=== PATIENT | male | born 1940 | race Caucasian/White ===

== ENCOUNTER 2017-11-21 08:00 | Outpatient (CLI) | payer MEDICARE, BC ==
[2017-11-21 12:50] LABS: BASOPHILS # (AUTO) 0.1 10^3/uL (0.0-0.1); BASOPHILS % (AUTO) 0.9 %; EOSINOPHILS # (AUTO) 0.4 10^3/uL (0.0-0.7); EOSINOPHILS % (AUTO) 6.1 %; HGB - HEMOGLOBIN 16.3 g/dL (14.0-18.0); LYMPHOCYTES # (AUTO) 1.2 10^3/uL (1.5-3.5); LYMPHOCYTES % (AUTO) 16.1 %; MEAN CORPUSCULAR HEMOGLOBIN 32.7 pg (27.0-31.0); MEAN CORPUSCULAR HGB CONC 34.4 g/dL (32.0-36.0); MEAN PLATELET VOLUME 8.4 fL (7.4-11.4); MONOCYTES # (AUTO) 0.7 10^3/uL (0.0-1.0); MONOCYTES % (AUTO) 9.7 %; NEUTROPHILS # (AUTO) 4.8 10^3/uL (1.5-6.6); NEUTROPHILS % (AUTO) 67.2 %; PLT - PLATELET COUNT 257 10^3/uL (130-450); RED BLOOD COUNT 4.98 10^6/uL (4.70-6.10); RED CELL DISTRIBUTION WIDTH 13.6 % (12.0-15.0); WHITE BLOOD COUNT 7.2 x10^3/uL (4.8-10.8)
[2017-11-21 13:09] LABS: ALBUMIN/GLOBULIN RATIO 1.1 (1.0-2.2); ALKALINE PHOSPHATASE 91 IU/L (42-121); ALT ALANINE AMINOTRANSFERASE 24 IU/L (10-60); AST ASPARTATE AMINOTRANSFERASE 24 IU/L (10-42); BILIRUBIN,TOTAL 0.6 mg/dL (0.2-1.0); BUN - BLOOD UREA NITROGEN 16 mg/dL (6-20); CALCIUM 9.2 mg/dL (8.5-10.3); CARBON DIOXIDE - CO2 26 mmol/L (21-32); CHLORIDE 107 mmol/L (101-111); CHOL/HDL RATIO 5.2 (<5.0); CHOLESTEROL 176 mg/dL; CREATININE 0.8 mg/dL (0.6-1.2); GFR - MDRD 94 (>89); GLUCOSE 107 mg/dL (70-100); HDL CHOLESTEROL 34 mg/dL; LDL CHOLESTEROL,CALCULATED 127 mg/dL; LDL/HDL RATIO 3.7 (<3.6); SODIUM 140 mmol/L (135-145); TOTAL PROTEIN 7.6 g/dL (6.7-8.2); VLDL CHOLESTEROL 15 mg/dL
== END 2017-11-21 08:01 | disposition home or self-care (01) ==
LOC: LAB.WCP 08:00
PROVIDERS: ATTEND Family Medicine
DX: I10 Essential (primary) hypertension (principal); Z12.5 Encounter for screening for malignant neoplasm of prostate; Z13.220 Encounter for screening for lipoid disorders
CPT/HCPCS: 36415; 80053; 80061; 85025; G0103; 83721; 84153

== ENCOUNTER 2018-05-19 08:00 | Outpatient (CLI) | payer MEDICARE, BC ==
[2018-05-19 12:42] LABS: ALBUMIN 3.7 g/dL (3.2-5.5); ALBUMIN/GLOBULIN RATIO 1.1 (1.0-2.2); BILIRUBIN,TOTAL 0.7 mg/dL (0.2-1.0); CALCIUM 8.9 mg/dL (8.5-10.3); TOTAL PROTEIN 7.1 g/dL (6.7-8.2)
[2018-05-19 13:07] LABS: HB2 TOTAL 16.6 g/dL; HEMOGLOBIN A1C 0.69 g/dL
== END 2018-05-19 23:59 ==
LOC: LAB.WCP 08:00
PROVIDERS: ATTEND Family Medicine
DX: R73.01 Impaired fasting glucose (principal); I10 Essential (primary) hypertension; E78.00 Pure hypercholesterolemia, unspecified; J45.909 Unspecified asthma, uncomplicated
CPT/HCPCS: 36415; 80053; 83036

== ENCOUNTER 2019-08-02 14:06 | Emergency (ER) | payer MEDICARE, BC ==
[2019-08-02] MEDS ORDERED: ALBUTEROL NEB 2.5 MG/3 ML INH STA (14:54)
--- NOTE | 2019-08-02 14:57 | ED Physician Documentation ---
History of Present Illness - Stated complaint Stated Complaint: SOA - Chief complaint Chief Complaint: Resp - History obtained from History obtained from: Patient - History of Present Illness Timing: Prior to arrival Pain level max: 0 Pain level now: 0 - Additonal information Additional information: 79 year old male here with cc of feeling short of breath and having wheeze on the right lung. reports that 2 days ago he was attempting to swallow a large gel coated capsule and it become stuck in his throat. He was trying to cough it out, but could not. a short time later the gel dissolved and he inhaled the contents of the capsule. Since then wheeze and some labored breathing since. Denies chest pain. Reports a long standing hx of asthma (advair and xopenex). never a smoker. Since the even he denies any productive cough, no hemoptysis. no fevers. Review of Systems Constitutional: reports: Fever, Reviewed and negative Nose: reports: Rhinorrhea / runny nose Throat: reports: Swallowed foreign body Cardiac: reports: Reviewed and negative Respiratory: reports: Dyspnea, Cough, Wheezing GI: reports: Reviewed and negative Skin: reports: Reviewed and negative Musculoskeletal: reports: Reviewed and negative Neurologic: reports: Reviewed and negative PD PAST MEDICAL HISTORY - Past Medical History Cardiovascular: None, Hypertension Respiratory: Asthma Neuro: None GI: None : None HEENT: Chronic sinusitis, Chronic hearing loss Psych: None Musculoskeletal: None Derm: Eczema - Past Surgical History Past Surgical History: Yes General: Cholecystectomy, Other - Present Medications Home Medications: Ambulatory Orders Medication Instructions Recorded Confirmed Clobetasol Propionate/Emoll 15 gm TP DAILY 10/31/15 10/31/15 [Clobetasol Emollient 0.05% Crm] Fluticasone/Salmeterol [Advair 1 each IH BID 10/31/15 10/31/15 500-50 Diskus] Levalbuterol Tartrate [Xopenex Hfa] 15 gm IH DAILY PRN 10/31/15 10/31/15 Montelukast [Singulair] 10 mg PO QPM 10/31/15 10/31/15 predniSONE [Prednisone] 40 mg PO DAILY #10 tablet 08/02/19 - Allergies Allergies/Adverse Reactions: Allergies Allergy/AdvReac Type Severity Reaction Status Date / Time aspirin Allergy Anaphylaxis Verified 10/31/15 15:28 Sulfa (Sulfonamide Allergy Rash Verified 10/31/15 15:28 Antibiotics) - Social History Does the pt smoke?: No Smoking Status: Never smoker Does the pt drink ETOH?: No Does the pt have substance abuse?: No - Immunizations Immunizations are current?: Yes - POLST Patient has POLST: No PD ED PE NORMAL - General General: Alert and oriented X 3, No acute distress - HEENT HEENT: Atraumatic, PERRL, Moist mucous membranes - Neck Neck: Supple, no meningeal sign, No adenopathy - Cardiac Cardiac: RRR, No murmur, Strong equal pulses - Respiratory Respiratory: Other PD ED PE EXPANDED - Respiratory Respiratory: Wheezing, Rales, Right upper lobe, Right middle lobe, Right lower lobe Results - Vitals Vitals: Vital Signs - 24 hr 08/02/19 08/02/19 08/02/19 14:13 14:26 15:15 Temperature 36.6 C 36.7 C Heart Rate 92 84 74 Respiratory 16 18 12 Rate Blood Pressure 162/102 H 162/79 H O2 Saturation 97 96 08/02/19 15:36 Temperature Heart Rate 76 Respiratory 12 Rate Blood Pressure O2 Saturation Oxygen O2 Source Room air - Rads (name of study) cxr Radiology: Final report received (no acute cardiopulmonary pathology) PD MEDICAL DECISION MAKING - ED course Complexity details: reviewed results, re-evaluated patient, considered differential, d/w patient ED course: Cought/SOB: - considered asthma, pneumonia, foreign body, chemical aspiration - pt seen initially and had sats 96% with extensive right sided wheeze. Pt was given albuterol nebulizer and wheeze abated. He continued to have some rancorous lung sounds on the right and a dubneb was given. Following second nebulizer pt reported he was able to cough a large amount of phlegm and felt markedly better - pt has exhibited no hypoxia, dyspnea in ED - CXR negative for focal opacity. no e/p pneumonia. he has no fever or pr oductive cough outside of the ED - will tx as suspected asthma exacerbation, thought he may have a component of chemical pneumonitis - dc with 4 days of prednison burst Departure - Departure Disposition: 01 Home, Self Care Clinical Impression: Asthma Qualifiers: Asthma severity: mild Asthma persistence: persistent Asthma complication type: with acute exacerbation Qualified Code(s): J45.31 - Mild persistent asthma with (acute) exacerbation Dyspnea Qualifiers: Dyspnea type: shortness of breath Qualified Code(s): R06.02 - Shortness of breath; R06.00 - Dyspnea, unspecified; R06.01 - Orthopnea Condition: Good Instructions: Asthma Dc Follow-Up: Sai Delgado MD [Primary Care Provider] - Within 1 week Prescriptions: predniSONE [Prednisone] 40 mg PO DAILY #10 tablet Comments: Your chest xray looked great. no pneumonia. It is possible that you may have a little inflammation in the upper airways from the event resulting in an asthma exacerbation. Let's have you take the prednisone as prescribed daily for 5 days. Stem therapy will also help with your breathing as discussed If you develop worsening shortness of breath, develop a productive cough or have fevers, please return for a second look. please follow up with your primary doctor in one week
--- NOTE | 2019-08-02 15:28 | XRAY Report ---
Reason: wheezing, possible FB Procedure Date: 08/02/2019 Accession Number: [id number] / [id number] Procedure: XR - Chest 2 View X-Ray CPT Code: 32591 Final Report FULL RESULT: PROCEDURE: Chest 2 View X-Ray INDICATIONS: wheezing, possible FB TECHNIQUE: 1 view(s) of the chest. COMPARISON: None. FINDINGS: Surgical changes and devices: None. Lungs and pleura: No pleural effusions or pneumothorax. Lungs are clear. No radiodense foreign body identified. Mediastinum: Mediastinal contours are normal. Heart size is normal. Bones and chest wall: No suspicious bony abnormalities. Thoracic spine degenerative disc disease. Soft tissues appear unremarkable. IMPRESSION: No acute cardiopulmonary disease process. No radiodense foreign body identified. Reviewed by: Kitty Wolf MD, PhD on 08/02/2019 3:23 PM PDT Approved by: Kitty Wolf MD, PhD on 08/02/2019 3:23 PM PDT Station ID: [id number]
[2019-08-02] MEDS ORDERED: IPRATROPIUM/ALBUTEROL 3 ML NEB INH STA (15:29)
[2019-08-02 16:21] VITALS: BP 146/69
== END 2019-08-02 16:44 | disposition home or self-care (01) ==
LOC: ED 14:06
DX: J45.31 Mild persistent asthma with (acute) exacerbation (principal); I10 Essential (primary) hypertension
CPT/HCPCS: 71046; 94640; 99284

== ENCOUNTER 2019-12-14 15:16 | Outpatient (CLI) | payer MEDICARE, BC | END 2019-12-14 15:17 | disposition critical access hospital (66) | LOC: EMS 15:16 | PROVIDERS: ATTEND Surgery | DX: R41.0 Disorientation, unspecified (principal); M54.9 Dorsalgia, unspecified | CPT/HCPCS: A0425; A0429 ==

== ENCOUNTER 2019-12-14 15:30 | Emergency (ER) | payer MEDICARE, BC ==
--- NOTE | 2019-12-14 16:38 | CT Report ---
PROCEDURE: CERVICAL SPINE WO INDICATIONS: fall/head injury/amnesia/LOC TECHNIQUE: Noncontrast 3 mm thick sections acquired from the skull base to the T4 level. Sagittal and coronal r eformats were then constructed. For radiation dose reduction, the following was used: automated exp osure control, adjustment of mA and/or kV according to patient size. COMPARISON: Correlation is made with the accompanying head CT, 12/14/2019. FINDINGS: Image quality: This study is limited by quantum mottle artifact. Bones: No fractures or dislocations. Visualized superior ribs are intact. Degenerative changes are seen, with moderate to severe disc space narrowing at C5-C6 and at least mod erate disc space narrowing at C6-C7. Endplate irregularity and sclerosis are seen, which are most pro minent at C5-C6. Posterior directed endplate osteophytes are seen, which are worst at C5-C6. Focal de generative change can also be seen involving the C1-C2 interface anteriorly. Milder degenerative barker ges are seen elsewhere. Soft tissues: Prevertebral soft tissues are normal in thickness. No paravertebral hematomas. No ap ical pneumothoraces. IMPRESSION: No acute fractures are seen. Cervical spine degenerative changes are seen, which are most prominent at C5-C6. Reviewed by: Jerry Rosario MD on 12/14/2019 3:37 PM ANKIT Approved by: Jerry Rosario MD on 12/14/2019 3:37 PM ANKIT Station ID: [id number]
--- NOTE | 2019-12-14 16:40 | CT Report ---
PROCEDURE: HEAD WO INDICATIONS: fall/head injury/loc/amnesia TECHNIQUE: Noncontrast 4.5 mm thick angled axial sections acquired from the foramen magnum to the vertex. For r adiation dose reduction, the following was used: automated exposure control, adjustment of mA and/or kV according to patient size. COMPARISON: Correlation is made with the accompanying cervical spine CT, 12/14/2019. FINDINGS: Image quality: Excellent. CSF spaces: Basal cisterns are patent. No extra-axial fluid collections. Ventricles are normal in size and shape. Brain: No midline shift. No intracranial masses or hemorrhage. Bell-white matter interface is norm al. Skull and face: Calvarium and visualized facial bones are intact, without suspicious lesions. Sinuses: Apparent nasal polyps can be seen. Mild mucosal thickening is seen within the ethmoid air ce lls. The frontal sinuses are poorly developed. There is moderate to prominent fluid seen within the r ight mastoid air cells. The left mastoid air cells appear clear. IMPRESSION: No intracranial hemorrhage is seen. No displaced calvarial fracture is seen. Moderate to prominent fluid can be seen within the right mastoid air cells. Please correlate with pot ential clinical findings of mastoiditis. Differential diagnosis would include fracture in this patien t with trauma, yet this is considered to be less likely. Apparent nasal polyps are seen. Mild mucosal thickening seen within the ethmoid air cells. Reviewed by: Jerry Rosario MD on 12/14/2019 3:39 PM ANKIT Approved by: Jerry Rosario MD on 12/14/2019 3:39 PM AKSUHAS Station ID: [id number]
--- NOTE | 2019-12-14 16:45 | XRAY Report ---
PROCEDURE: Chest 1 View X-Ray INDICATIONS: chest pain TECHNIQUE: One view of the chest was acquired. COMPARISON: Chest radiographs dated 08/02/2019 FINDINGS: Surgical changes and devices: None. Lungs and pleura: No pleural effusions or pneumothorax. Chronic lung markings in the lung bases appe ar stable when compared to the prior radiographs. No acute consolidation is seen, although evaluation is mildly compromised by patient rotation. Mediastinum: Mediastinal contours appear normal. Heart size is normal. Mild atherosclerotic calcif ications are seen in the aorta. Bones and chest wall: No suspicious bony lesions. Overlying soft tissues appear unremarkable. Dege nerative changes are seen in the spine. IMPRESSION: No acute cardiopulmonary abnormality. Reviewed by: Hollis Cordero MD on 12/14/2019 4:44 PM PDT Approved by: Hollis Cordero MD on 12/14/2019 4:44 PM PDT Station ID: [id number]
--- NOTE | 2019-12-14 17:06 | ED Physician Documentation ---
History of Present Illness - Stated complaint Stated Complaint: FALL/BACK PAIN - Chief complaint Chief Complaint: Trauma Ch/Bk - History obtained from History obtained from: Patient, EMS - Additonal information Additional information: Patient comes emergency department via EMS after apparently falling from a ladder onto his deck at home. Patient has been somewhat amnestic to the event according to EMS, though he is regaining recollection. The patient states that he remembers getting up on a ladder approximately 8 feet high to clean [place] off of his roof. He remembers getting off the roof and onto the ladder and starting to climb down, but does not remember anything after this., Until the medics being there and transferring him onto a stretcher. The patient states he has a pain over his left posterior ribs but otherwise, has no complaints. He denies any headache or visual changes. No focal neurologic complaints. No neck, back other than ribs, chest, abdominal, or hip pain. No shoulder or upper extremity pain. No lower extremity pain. Patient states that he is not taking any anticoagulants. No other complaints at this time. Review of Systems Ten Systems: 10 systems reviewed and negative Constitutional: reports: Reviewed and negative Eyes: reports: Reviewed and negative Ears: reports: Reviewed and negative Nose: reports: Reviewed and negative Throat: reports: Reviewed and negative Cardiac: reports: Reviewed and negative Respiratory: reports: Reviewed and negative GI: reports: Reviewed and negative : reports: Reviewed and negative Skin: reports: Reviewed and negative Musculoskeletal: reports: Reviewed and negative Neurologic: reports: Confused, Head injury, LOC Psychiatric: reports: Reviewed and negative Endocrine: reports: Reviewed and negative Immunocompromised: reports: Reviewed and negative PD PAST MEDICAL HISTORY - Past Medical History Past Medical History: Yes Cardiovascular: None, Hypertension Respiratory: Asthma Neuro: None GI: None : None HEENT: Chronic sinusitis, Chronic hearing loss Psych: None Musculoskeletal: None Derm: Eczema - Past Surgical History Past Surgical History: Yes General: Cholecystectomy, Other - Present Medications Home Medications: Ambulatory Orders Medication Instructions Recorded Confirmed Clobetasol Propionate/Emoll 15 gm TP DAILY 10/31/15 10/31/15 [Clobetasol Emollient 0.05% Crm] Fluticasone/Salmeterol [Advair 1 each IH BID 10/31/15 10/31/15 500-50 Diskus] Levalbuterol Tartrate [Xopenex Hfa] 15 gm IH DAILY PRN 10/31/15 10/31/15 Montelukast [Singulair] 10 mg PO QPM 10/31/15 10/31/15 predniSONE [Prednisone] 40 mg PO DAILY #10 tablet 08/02/19 - Allergies Allergies/Adverse Reactions: Allergies Allergy/AdvReac Type Severity Reaction Status Date / Time aspirin Allergy Anaphylaxis Verified 12/14/19 15:42 dog dander Allergy Unknown Verified 12/14/19 15:42 gluten Allergy Unknown Verified 12/14/19 15:42 Sulfa (Sulfonamide Allergy Rash Verified 12/14/19 15:42 Antibiotics) - Social History Does the pt smoke?: No Smoking Status: Never smoker Does the pt drink ETOH?: No Does the pt have substance abuse?: No - Immunizations Immunizations are current?: Yes - POLST Patient has POLST: No PD ED PE NORMAL - Vitals Vital signs reviewed: Yes - General General: Alert and oriented X 3, No acute distress, Well developed/nourished - HEENT HEENT: Atraumatic, PERRL, EOMI, Moist mucous membranes - Neck Neck: Supple, no meningeal sign, No bony TTP, Other (Collar in place) - Cardiac Cardiac: RRR, No murmur - Respiratory Respiratory: No respiratory distress, Clear bilaterally - Abdomen Abdomen: Normal bowel sounds, Soft, Non tender, Non distended - Derm Derm: Warm and dry - Extremities Extremities: No deformity - Neuro Neuro: Alert and oriented X 3 - Psych Psych: Normal mood, Normal affect Results - Vitals Vitals: Vital Signs - 24 hr 12/14/19 12/14/19 12/14/19 15:37 15:42 17:37 Temperature 36.3 C L 36.5 C 36.5 C Heart Rate 84 84 79 Respiratory 20 20 18 Rate Blood Pressure 163/89 H 163/89 H 158/90 H O2 Saturation 95 95 95 Oxygen O2 Source Room air - Rads (name of study) CXR Radiology: Final report received, EMP read indepedently, See rad report (neg) CT head Radiology: Final report received, EMP read indepedently, See rad report (nad) CT c-spine Radiology: Final report received, EMP read indepedently, See rad report (nad, DJD) PD MEDICAL DECISION MAKING - ED course Complexity details: reviewed results, re-evaluated patient, considered differential, d/w patient ED course: Pt was worked up with CT head and c-spine, as well as CXR, all of which were unremarkable. C-collar was removed. We have discussed home management of the sx, as well as the usual indications for return. Departure - Departure Disposition: 01 Home, Self Care Clinical Impression: Fall from height of greater than 3 feet Closed head injury Qualifiers: Encounter type: initial encounter Qualified Code(s): S09.90XA - Unspecified injury of head, initial encounter Contusion of rib on left side Qualifiers: Encounter type: initial encounter Qualified Code(s): S20.212A - Contusion of left front wall of thorax, initial encounter Condition: Stable Instructions: ED Head Injury Closed, ED Contusion Rib Comments: Your CT scans and x-ray look good. There is no evidence of a serious injury from your fall today. Please do not climb to any heights until you are feeling completely back to your normal self. You may use ibuprofen and/or Tylenol to help with discomfort. Discharge Date/Time: 12/14/19 17:44
[2019-12-14 17:38] VITALS: BP 158/90
== END 2019-12-14 17:44 | disposition home or self-care (01) ==
LOC: EDUNIT# → ED 15:30
DX: S09.90XA Unspecified injury of head, initial encounter (principal); S20.212A Contusion of left front wall of thorax, initial encounter; W11.XXXA Fall on and from ladder, initial encounter; Y93.H9 Activity, other involving exterior property and land maintenance, building and construction; Y92.008 Other place in unspecified non-institutional (private) residence as the place of occurrence of the external cause; M47.812 Spondylosis without myelopathy or radiculopathy, cervical region; I10 Essential (primary) hypertension
CPT/HCPCS: 70450; 71045; 72125; 99282; 99284

== ENCOUNTER 2020-05-23 08:58 | Outpatient (CLI) | payer MEDICARE, BC ==
[2020-05-23 09:30] LABS: BASOPHILS # (AUTO) 0.1 10^3/uL (0.0-0.1); BASOPHILS % (AUTO) 1.1 %; EOSINOPHILS # (AUTO) 0.5 10^3/uL (0.0-0.7); EOSINOPHILS % (AUTO) 7.9 %; HCT - HEMATOCRIT 47.7 % (42.0-52.0); HGB - HEMOGLOBIN 15.7 g/dL (14.0-18.0); LYMPHOCYTES # (AUTO) 1.3 10^3/uL (1.5-3.5); MEAN CORPUSCULAR HEMOGLOBIN 32.5 pg (27.0-31.0); MEAN CORPUSCULAR HGB CONC 32.9 g/dL (32.0-36.0); MEAN CORPUSCULAR VOLUME 98.8 fL (80.0-94.0); MEAN PLATELET VOLUME 9.8 fL (7.4-11.4); MONOCYTES # (AUTO) 0.6 10^3/uL (0.0-1.0); NEUTROPHILS # (AUTO) 3.7 10^3/uL (1.5-6.6); NEUTROPHILS % (AUTO) 59.8 %; PLT - PLATELET COUNT 270 10^3/uL (130-450); RED BLOOD COUNT 4.83 10^6/uL (4.70-6.10); RED CELL DISTRIBUTION WIDTH 13.6 % (12.0-15.0); WHITE BLOOD COUNT 6.2 x10^3/uL (4.8-10.8)
[2020-05-23 09:47] LABS: CREATININE,URINE 126.5 mg/dL; MICROALBUM/CREATININE RATIO,UR 4.7 ug/mg (<30.0); MICROALBUMIN,URINE 0.6 mg/dL (0-300.0)
[2020-05-23 09:49] LABS: ALBUMIN/GLOBULIN RATIO 1.2 (1.0-2.2); ALKALINE PHOSPHATASE 95 IU/L (42-121); ALT ALANINE AMINOTRANSFERASE 26 IU/L (10-60); AST ASPARTATE AMINOTRANSFERASE 27 IU/L (10-42); BILIRUBIN,TOTAL 0.6 mg/dL (0.2-1.0); BUN - BLOOD UREA NITROGEN 21 mg/dL (6-20); CALCIUM 9.2 mg/dL (8.5-10.3); CARBON DIOXIDE - CO2 26 mmol/L (21-32); CHLORIDE 106 mmol/L (101-111); CHOL/HDL RATIO 4.6 (<5.0); CHOLESTEROL 176 mg/dL; GFR - MDRD 72 (>89); GLUCOSE 120 mg/dL (70-100); HDL CHOLESTEROL 38 mg/dL; LDL CHOLESTEROL,CALCULATED 122 mg/dL; LDL/HDL RATIO 3.2 (<3.6); POTASSIUM 4.5 mmol/L (3.5-5.0); SODIUM 141 mmol/L (135-145); TOTAL PROTEIN 7.3 g/dL (6.7-8.2); TRIGLYCERIDES 82 mg/dL; VLDL CHOLESTEROL 16 mg/dL
[2020-05-23 10:01] LABS: ESTIMATED AVERAGE GLUCOSE 126 mg/dL (70-100)
== END 2020-05-23 08:59 | disposition home or self-care (01) ==
LOC: LAB 08:58
PROVIDERS: ATTEND Internal Medicine
DX: I10 Essential (primary) hypertension (principal); R73.01 Impaired fasting glucose
CPT/HCPCS: 36415; 80053; 80061; 82043; 82570; 83036; 83721; 84443; 85025